=== PATIENT | female | born 1960 | race Caucasian/White ===

== ENCOUNTER → 2016-12-23 | Outpatient (CLI) | payer BC ==
[~2016-12-23] VITALS: Ht 175.3 cm; Wt 90.3 kg
[~2016-12-23] MED LIST: CYMBALTA30 MG PO; HYDROCODONE-AP1 EAC6 PO; IBUPROFEN 200200 M1 PO; LYRICA 75 MG CA75 MG PO; VITAMIN D 5050000 I1 PO
--- NOTE | ~2016-12-23 | HPC ---
[facility] [place] [address] PAIN MANAGEMENT CONSULTATION Name: LUCILLETODD MYERS Room #: REG MAUREEN Walker#: [id number] Admission: 12/23/16 Attend Phys: Kushal Maxwell DO Discharge: Date of : 58 Report #: [id number] THIS REPORT FOR: //name// CC: Kushal YUSUF DATE OF SERVICE: 12/23/2016 CHIEF COMPLAINT: Neck pain, right upper extremity pain and paresthesias. HISTORY OF PRESENT ILLNESS: As you know, patient is a very pleasant 56-year-old female referred to our service by Dr. Rene Mason for cervical radiculopathy. The patient was seen in consultation on 08/06/2015, diagnosed with cervical radiculopathy secondary to the displacement of a cervical intervertebral disk which led to the patient's chronic intractable neck and right upper extremity pain. The patient has undergone epidural injections times 2 with benefit at each one. As you are aware, the patient suffered from a very significant vasovagal response at the second cervical epidural injection. She has subsequently been started on medication management and she did not wish to undergo any future injections. She returns today in followup visit, reporting pain score 6-7/10. States the pain is constant, shooting and stabbing, exacerbated with lying down and related to movement, driving, and improves with medications. She returns today to discuss treatment options and to reinitiate Lyrica therapy and she was doing well with Lyrica in the past. The patient denies new injury, new trauma that may have lead to continuation of symptoms. ALLERGIES: No known drug allergies. CURRENT MEDICATIONS: Duloxetine 30 mg once a day, vitamin D 50,000 units per day, ibuprofen 200 mg 2 tabs p.o. every day. SOCIAL HISTORY: The patient denies tobacco, alcohol or IV illicit drug use. She is employed. She is unaccompanied today. PHYSICAL EXAMINATION: VITAL SIGNS: Blood pressure 129/82, pulse is 77, respiratory rate 16, unlabored. The patient is 96% on room air. Height 5 feet 9 inches tall, weight 199 pounds, BMI calculated 29.4. GENERAL: Well-developed, well-nourished, well-hydrated 56-year-old female appearing stated age, placing current pain score at around 6-7/10. HEENT: Normocephalic, atraumatic. Pupils are equal, round, reactive to light. Extraocular muscles are intact. Sclerae nonicteric, without injection. Speech fluent. The patient deemed a good historian. LUNGS: Clear, no wheeze, rhonchi or rales. CARDIOVASCULAR: Regular. No appreciable gallop or rub. ABDOMEN: Soft, nontender, nondistended, normal active bowel sounds. [facility] [address] [place] [address] PAIN MANAGEMENT CONSULTATION Name: TODD ADKINS Room #: REG [facility].#: [id number] Admission: 12/23/16 Attend Phys: Kushal Maxwell DO Discharge: Date of : 58 Report #: [id number] EXTREMITIES: Show no clubbing, no cyanosis, no edema. MUSCULOSKELETAL: Upper extremity strength remains equal and symmetrical 5/5, some giveaway strength noted with biceps flexion on the right compared to left. Spurling's test positive right, negative left. Cervical provocation including rotation, lateral flexion to the right causes intensification of pain. ASSESSMENT: 1. Symptomatic cervical radiculopathy. 2. Cervical spinal stenosis. 3. Displacement of cervical intervertebral disk with radiculopathy. 4. Cervical spondylosis with radiculopathy. 5. Foraminal stenosis of the cervical spine. 6. Chronic intractable pain. PLAN: 1. The patient has returned today in followup visit where we have discussed at length the options for treatment for cervical radicular symptoms. We discussed physical therapy with stretching exercises, reinitiation of medication management with Lyrica, which was beneficial for the patient in the past. We discussed cervical epidural injections as possible treatment options and surgical procedures. After reviewing risks and benefits of all the proposed treatment options, the patient chose to begin with medication management. 2. The patient will restart Lyrica 75 mg dose at night. She was given samples of this medication at 75 mg to begin the titration. She will start with the 75 mg at night for 7 nights, then increase to 150 mg p.o. at bedtime for 7 nights, then possibly increase to 75 mg in morning and 150 mg at night. She was given samples of the medication to begin the titration and given a coupon to receive medication from her local pharmacy at reduced rate. Once the patient reaches an efficacious level, she is to contact our clinic so that we can provide full prescriptions to her pharmacy. She was advised there is a possibility preauthorization may be necessary on medication, this could delay the initiation of therapy further. If this is the case, we will provide samples until which time she can receive the full dose. 3. I did discuss with the patient the possibility of surgical options as she is to follow up with Dr. Rene Mason, the referring neurosurgeon to discuss options of surgical treatment for her neck pain. <ELECTRONICALLY SIGNED> By: Kushal Maxwell DO 01/04/17 [id number] 27 Kushal Maxwell DO /milo
[2016-12-23 10:32] VITALS: BP 129/82
== END | disposition home or self-care (01) ==
LOC: PAIN 07:13
DX: M50.10 Cervical disc disorder with radiculopathy, unspecified cervical region (principal); M47.22 Other spondylosis with radiculopathy, cervical region; M48.02 Spinal stenosis, cervical region; G89.29 Other chronic pain

== ENCOUNTER → 2017-03-10 | Outpatient (CLI) | payer BC ==
[~2017-03-10] VITALS: Ht 175.3 cm; Wt 88.6 kg
--- NOTE | ~2017-03-10 | HPC ---
[facility] [address] [address] PAIN MANAGEMENT CONSULTATION Name: TODD ADKINS [facility] [id number] Admission: 03/10/17 Attend Phys: Kushal Maxwell DO Discharge: Date of : 58 Report #: [id number] THIS REPORT FOR: //name// CC: Kushal Ivy MD DATE OF SERVICE: 03/10/2017 REFERRING PHYSICIAN: Dr. Rene Mason. CHIEF COMPLAINT: Neck pain. HISTORY OF PRESENT ILLNESS: As you know, the patient is a very pleasant 57-year-old female who returns today in followup visit with continued neck pain for which she places pain score 7/10, she states she has constant pain and numbness, exacerbated with lying down, repeated movement and driving. She has been referred to our clinic by Dr. Rene Mason for suspected cervical radiculopathy. She has sought a second opinion with the physician somewhere in [place] and they have requested imaging studies to be performed prior to her visit with them, though I have no idea of what these imaging studies would be. She states that she needs a "CT exam and flexion, extension." She has only mild changes at the C5-C6 level by MRI from the past and thecal sac measures 0.9 cm AP, which would be classified as a mild cervical stenosis. We have trialled cervical epidural injections, but the patient has had difficulty with those injections in the past. She returns today to discuss options for treatment, placing pain score 6-7/10, exacerbated with activities. ALLERGIES: PENICILLIN. CURRENT MEDICATIONS: Duloxetine, vitamin D, and ibuprofen. SOCIAL HISTORY: The patient denies tobacco, alcohol, IV or illicit drug use. She is working, not receiving workmen's compensation. She is unaccompanied today. IMAGING: No new imaging available. PHYSICAL EXAMINATION: VITAL SIGNS: Blood pressure 124/83, pulse 84, respiratory rate 16 and unlabored, the patient is 99% on room air, height 5 feet 9 inches tall, weight 195.4 pounds, and BMI calculated 28.8. GENERAL: Well-developed, well-nourished, well-hydrated 57-year-old female, appearing her stated age. Pain is rated around 6-7/10. HEENT: Normocephalic, atraumatic. Pupils are equal, round, and reactive to [facility] [address] [place] [address] PAIN MANAGEMENT CONSULTATION Name: LUCILLETODD MYERS [facility] [id number] Admission: 03/10/17 Attend Phys: Kushal Maxwell DO Discharge: Date of : 58 Report #: [id number] light. Extraocular muscles are intact. Sclerae are nonicteric without injection. Speech is fluent. LUNGS: Clear. No wheeze, rhonchi, or rales. CARDIOVASCULAR: Regular. No appreciable gallop or rub. ABDOMEN: Soft, normoactive bowel sounds. EXTREMITIES: Show no clubbing, no cyanosis, and no edema. MUSCULOSKELETAL: Upper extremity strength remains symmetrical 5/5, some giveaway strength noted with biceps flexion on the right when compared to left. Pain is generated with maneuver. Spurling's test causes pain on the right, negative left. No radiation into the proximal right upper extremity. ASSESSMENT: 1. Cervical radiculopathy. 2. Mild cervical spinal stenosis. 3. Mild displacement of cervical intervertebral disk with reported radicular symptoms. 4. Mild cervical spondylosis with radicular symptoms. 5. Chronic intractable pain. PLAN: 1. The patient has returned today in followup visit indicating that she has sought a second opinion from a surgeon in the [place] area. Apparently, the patient has been talking to the surgeon, but has not actually had an appointment to see them. The patient indicates that the surgeon is requesting very specific imaging studies as her MRI "did not provide enough information." The patient indicates that this physician is requesting a CT without contrast, even though we already have MRI of cervical spine and there have been no changes in the patient's condition since that imaging study other than continuation of typical pain issues. She is also indicating this physician has requested flexion and extension films. At this time, I feel comfortable writing for the flexion and extension films from an x-ray standpoint, these can be achieved quite quickly and do make sense to determine if there is some type of pathologic movement in the area. As for the CT examination without contrast, I need more information before I could even determine whether or not this is necessary. The patient indicates that the surgeon is looking "for anatomy and calcifications." I am not sure what we would gain from a CT that we do not already have from an MRI that was performed with and without contrast in June 2015 and repeated again on 01/25/2017. 2. The patient will be sent for flexion and extension films of the cervical spine. These will be plain film x-ray, she will undergo the procedure as quickly as possible, we will review the findings. I suspect we will see some mild arthritic changes between the 5-6 to C7-T1 levels. I hopeful we do not see any pathologic movement from flexion and extension, we will review the findings once they are available. 3. The patient was provided no changes in her medical therapies, so she is to continue medication management as currently prescribed. [facility] [place] [address] PAIN MANAGEMENT CONSULTATION Name: LUCILLETODD MYERS Room #: REG MAUREEN Walker#: [id number] Admission: 03/10/17 Attend Phys: Kushal Maxwell DO Discharge: Date of : 58 Report #: [id number] 4. The patient will contact her surgeon in the [place] area, try to determine what exactly is necessary and needed for her imaging and have this surgery team contact our clinic. I need to have a justifiable reason for the patient to undergo a CT examination, we already have a current and recent MRI of the cervical spine with lack of any major pathology. They will need to contact our clinic in regards to reasoning for CT examination at this juncture. We will be available to talk to the surgeon in the meantime about the requirements that he might need. By: [id number] Kushal Maxwell DO /nt
[2017-03-10 09:06] VITALS: BP 122/83
== END ==
LOC: PAIN 07:00 → RAD 07:00 → PAIN 13:49
DX: M50.10 Cervical disc disorder with radiculopathy, unspecified cervical region (principal); M48.02 Spinal stenosis, cervical region; G89.29 Other chronic pain; M47.22 Other spondylosis with radiculopathy, cervical region; I10 Essential (primary) hypertension; F32.9 Major depressive disorder, single episode, unspecified